=== PATIENT | male | born 1950 | race Caucasian/White ===

== ENCOUNTER 2019-08-09 10:12 | Emergency (ER) | payer BC, MEDICARE, OTHER ==
[2019-08-09 10:26] VITALS: BP 107/54; PULSE 115
--- NOTE | 2019-08-09 10:53 | CR ---
[id number] RAD/RAD Chest PA And Lateral Exam: RAD Chest PA And Lateral Indication:CHEST TUBE PULLED OUT APPROX. 1 INCH. Comparison: No prior imaging for comparison. Discussion: A pigtail catheter projects over the right lung base. No other examinations are available for comparison. There is possibly a small basal pneumothorax versus sequela of COPD projecting over the costophrenic sulcus. There is also likely a small residual right pleural effusion. Left lung remains clear. Impression: Pigtail catheter projects over the right lung base with other findings, described above. Correlation with any prior imaging would be of benefit. Quinton Mata MD 08/09/19 1052 Thank you for allowing us to participate in the care of your patient.
--- NOTE | 2019-08-09 11:14 | EDM.PDOC ---
ED HPI GENERAL MEDICAL PROBLEM - General Chief Complaint: Respiratory Problem Stated Complaint: CHEST TUBE ISSUE Time Seen by Provider: 08/09/19 10:59 Source of Information: Reports: Patient, EMS, EMS Notes Reviewed, RN (Os was) History Limitations: Reports: No Limitations - History of Present Illness Onset: Today Onset Date: 08/09/19 Onset Time: 06:00 Duration: Hour(s): Location: Reports: Chest Improves with: Reports: None Worsens with: Reports: None Associated Symptoms: Reports: No Other Symptoms Treatments REGISTER IN CHANCERY: Reports: Other Medication(s) Other Treatments REGISTER IN CHANCERY: Dilaudid given prior to transport by hospice nurse. Right Chest Pain Score (Numeric/FACES): 3 - Related Data Allergies Allergy/AdvReac Type Severity Reaction Status Date / Time No Known Drug Allergies Allergy Cannot Verified 08/09/19 10:31 Remember Home Meds: Home Meds levETIRAcetam [Levetiracetam] 500 mg PO BID 05/18/16 [History] Acetaminophen [Tylenol Extra Strength] 1,000 mg PO TID 08/09/19 [History] Albuterol/Ipratropium [DuoNeb 3.0-0.5 MG/3 ML] 3 ml INH QID PRN 08/09/19 [ History] Bacitracin [Bacitracin Oint 1 GM] 1 applic TOP DAILY 08/09/19 [History] Famotidine [Pepcid] 20 mg PO DAILY PRN 08/09/19 [History] Gabapentin [Neurontin] 300 mg PO TID 08/09/19 [History] Glycopyrrolate [Robinul] 1 mg PO Q8H 08/09/19 [History] HYDROmorphone [Dilaudid] 1 mg PO Q4H PRN 08/09/19 [History] LORazepam [Ativan] 0.25 mg PO Q4H PRN 08/09/19 [History] Lidocaine [Lidocaine Pain Relief] 1 patch TOP ASDIRECTED 08/09/19 [History] Ondansetron [Zofran] 8 mg PO Q8H PRN 08/09/19 [History] Polyethylene Glycol 3350 [MiraLAX] 17 gm PO DAILY 08/09/19 [History] Sennosides/Docusate Sodium [Senna Plus Tablet] 1 tab PO BID 08/09/19 [History] Past Medical History Neurological History: Reports: Seizure Social & Family History - Caffeine Use Caffeine Use: Reports: Coffee ED ROS GENERAL - Review of Systems Review Of Systems: Comprehensive ROS is negative, except as noted in HPI. Constitutional: Reports: No Symptoms HEENT: Reports: No Symptoms Respiratory: Reports: No Symptoms Cardiovascular: Reports: No Symptoms Endocrine: Reports: No Symptoms GI/Abdominal: Reports: No Symptoms : Reports: No Symptoms Musculoskeletal: Reports: No Symptoms Skin: Reports: No Symptoms Neurological: Reports: No Symptoms Psychiatric: Reports: No Symptoms Hematologic/Lymphatic: Reports: No Symptoms Immunologic: Reports: No Symptoms ED EXAM, GENERAL - Physical Exam Exam: See Below Exam Limited By: No Limitations General Appearance: Alert, No Apparent Distress, Cachetic Throat/Mouth: Normal Inspection, Normal Oropharynx, No Airway Compromise Respiratory/Chest: Chest Non-Tender, Decreased Breath Sounds (Bibasilar), Other (tachypneic at 25-30) Cardiovascular: Regular Rate, Rhythm, No Murmur GI/Abdominal: Normal Bowel Sounds, Soft, Non-Tender Neurological: Alert, Oriented Psychiatric: Normal Affect, Normal Mood Skin Exam: Warm, Dry, Intact, Normal Color, No Rash Course - Vital Signs Last Recorded V/S: Last Vital Signs Temp 97.4 F 08/09/19 10:15 Pulse 115 H 08/09/19 10:15 Resp 34 H 08/09/19 10:15 BP 107/54 L 08/09/19 10:15 Pulse Ox 95 08/09/19 10:15 - Radiology Interpretation Free Text/Narrative:: Chest x-ray shows pigtail catheter at right lung base, with twisted appearance, small percent pneumothorax/pleural effusion, right base - Re-Assessments/Exams Free Text/Narrative Re-Assessment/Exam: 08/09/19 11:16 Following an in depth conversation between Mia Rice the RN, patient, and his , it was decided that a chest tube would not be reinserted at this time. Patient has metastatic cancer and is DNR. Patient afebrile, remains tachycardic per his nurse 100-110 is typical, oxygen saturation 96-97% on 2 L nasal cannula. Pigtail catheter noted to have eyelets beyond entrance site. Concern for reentry of air and therefore, catheter removed without difficulty or complication. No change in breath sounds were vital signs post procedure. Vital signs remain stable throughout ER course. Patient will be transported back home via EMS and patient will be followed by Dr. Garcias. 08/09/19 11:29 Departure - Departure Time of Disposition: 11:25 Disposition: Home, Self-Care 01 Condition: Fair Clinical Impression: Encounter for chest tube removal - Discharge Information Instructions: Shortness of Breath, Adult, [id number] Referrals: Madi Ellis [employer] [Primary Care Provider] - Sepsis Event Note - Evaluation Sepsis Screening Result: No Definite Risk - Focused Exam Vital Signs: Vital Signs Temp Pulse Resp BP Pulse Ox 08/09/19 10:15 97.4 F 115 H 34 H 107/54 L 95 Date Exam was Performed: 08/09/19 Time Exam was Performed: 10:59 - Assessment/Plan Assessment:: Chest tube evaluation and removal Plan: Follow-up with PCP
== END 2019-08-09 11:50 | disposition home or self-care (01) ==
LOC: KA.ED 10:12
DX: Z45.2 Encounter for adjustment and management of vascular access device (principal); Z79.899 Other long term (current) drug therapy
CPT/HCPCS: 71046; 99283-25; 99284